=== PATIENT | female | born 1960 | race Caucasian/White ===

== ENCOUNTER 2020-01-22 22:15 | Observation (INO) | payer OTHER, SELFPAY ==
[2020-01-22] VITALS (11 sets, daily range): BP systolic 148–180; BP diastolic 81–98; PULSE 108–142; RESP 13–21; TEMP 36.2; O2SAT 99–100
--- NOTE | ~2020-01-22 | XR_ITS ---
EXAMINATION: XR chest 2V DATE: 01/22/2020 23:07 INDICATION: Arrhythmia. TECHNIQUE: Frontal and lateral views of the chest were obtained. COMPARISON: Chest 2 views 10/07/2011 FINDINGS: The chest demonstrates clear lungs without pneumonia, pleural effusion, or pneumothorax. Th e heart size is normal. There is mild chronic anterior wedging of multiple thoracic vertebral bodies. IMPRESSION: 1. No acute cardiopulmonary disease. Reviewed, dictated and finalized at location A. EMS DEVELOPMENT CONSULTANT
--- NOTE | 2020-01-22 22:22 | ED.GENADULT ---
HPI - General Adult General Chief complaint: Chest Pain Stated complaint: chest heaviness Time Seen by Provider: 01/22/20 22:22 Source: patient Mode of arrival: ambulatory Limitations: no limitations History of Present Illness HPI narrative: Patient is a 59-year-old female with a history of hypothyroidism who presents for evaluation of palpitations, fluttering in her heart. She reports mild chest heaviness. She denies any chest pain. Patient states symptoms started around 9 PM, but she occasionally has had fluttering episodes for many months, patient states her primary care physician stated these were normal and that she should avoid caffeine. Patient denies any recent new medication changes. She is compliant with her Synthroid. She denies any nausea, vomiting or recent illnesses. She denies any numbness or weakness. Pt with history of COVID infection in past, she did not require hospitalization. Pt denies any recent fever, cough, cold symptoms. Related Data Allergies Allergy/AdvReac Type Severity Reaction Status Date / Time No Known Allergies Allergy Verified 01/22/20 22:22 Review of Systems Review of Systems: Narrative: CONSTITUTIONAL: Denies fever, chills, or sweats. EYES: Denies visual changes, redness, or discharge. ENT: Denies rhinorrhea, congestion, sore throat, or otalgia. CARDIOVASCULAR: Denies chest pain currently, reports palpitations RESPIRATORY: Denies cough or dyspnea. GASTROINTESTINAL: Denies abdominal pain, nausea, vomiting, or diarrhea. GENITOURINARY: Denies dysuria or hematuria. SKIN: Denies rash or itching. MUSCULOSKELETAL: Denies back pain, joint pain, or myalgia. NEUROLOGIC: Denies headache, numbness, or weakness. [facility] Past Medical History Medical History Fatigue Generalized osteoarthrosis, unspecified site Hair loss History of mammogram (~07/17/15) Hypothyroidism, unspecified Mixed hyperlipidemia Normal colonoscopy (~05/06/11) Trigger finger (~09/2009) Surgical History Surgical History History of section (~1990) History of section (~1986) Family History Family History Mother Hypertension Family history of elevated blood lipids Family history of coronary artery disease Social History Social History Smoking status: Former smoker Alcohol intake: never Exam Narrative: Exam Narrative: GENERAL: Awake, alert, conversant HEAD: Normocephalic, atraumatic. EYES: PERRLA and EOMI. ENT: Nares clear, no rhinorrhea or epistaxis. Mucous membranes moist. NECK: Supple. CHEST: No respiratory distress, breathing even and non labored HEART: Tachycardic, regular rate, consistent atrial fibrillation with RVR ABDOMEN:Non distended, non tender EXTREMITIES: Normal range of motion. No edema. SKIN: Warm, dry, no rash. NEURO:No focal deficits. Alert and oriented x3 Course Vital Signs Vital signs: Vital Signs Temperature 36.2 C L 01/22/20 22:15 Pulse Rate 136 H 01/22/20 22:15 Respiratory Rate 14 01/22/20 22:15 Blood Pressure 162/98 H 01/22/20 22:15 Pulse Oximetry 100 01/22/20 22:15 Temperature 36.2 C L 01/22/20 22:15 Pulse Rate 118 H 01/23/20 01:34 Respiratory Rate 16 01/23/20 01:34 Blood Pressure 129/89 01/23/20 01:34 Pulse Oximetry 98 01/23/20 01:34 Medical Decision Making MDM Narrative Medical decision making narrative: Patient presented for evaluation of palpitations. At the time of assessment, ABCs are intact. Vital signs notable for irregular tachycardia consistent with atrial fibrillation with RVR. Patient initially endorses that symptoms started at 9 PM this evening, however when I spoke with the patient she states that she often gets intermittent fluttering and was advised to discontinue caffeine use by her primar
--- NOTE | 2020-01-22 22:23 | ECG_ITS ---
Measurements Intervals [place] Rate: 144 P: MA: 0 QRS: 31 QRSD: 90 T: 26 QT: 286 QTc: 443 Interpretive Statements ATRIAL FIBRILLATION WITH RAPID VENTRICULAR RESPONSE DELAYED PRECORDIAL R/S TRANSITION ABNORMAL ECG Electronically Signed On 01-23-2020 7:56:39 MUSIC PRODUCER by Giovani Cortes D.O.
[2020-01-22 22:31] LABS: Basophils Percent Auto 0.5 % (0.2-1.2); Eosinophils Absolute Auto 0.6 K/mm3 (0-0.3); Eosinophils Percent Auto 6.4 % (0-4.4); Hematocrit 40.6 % (37.0-47.0); Hemoglobin 13.4 g/dL (12.0-15.0); Immature Granulocyte Absolute 0.02 K/mm3 (0.00-0.031); Immature Granulocyte Percent A 0.2 % (0-0.5); Lymphocytes Absolute Auto 2.84 K/mm3 (0.9-3.2); Lymphocytes Percent Auto 32.5 % (18.3-44.2); Mean Corpuscular Hemoglobin 32.4 pg (26-34); Mean Corpuscular Volume 98.1 fl (80-100); Mean Platelet Volume 10.1 fl (7.4-10.4); Monocytes Absolute Auto 0.7 K/mm3 (0.1-0.6); Neutrophils Absolute Auto 4.6 K/mm3 (1.3-6.7); Neutrophils Percent Auto 52.4 % (45.5-73.1); Platelet Count Result 174 k/mm3 (150-375); Red Blood Count 4.14 M/mm3 (4.2-5.4); Red Cell Distribution Width 13.3 % (11.5-14.5); White Blood Count 8.7 K/mm3 (4.5-10.0)
[2020-01-22 22:41] LABS: INR 0.9; Prothrombin Time 13.2 Seconds (11.1-14.7)
[2020-01-22 22:42] LABS: Partial Thromboplastin Time 26.3 SECONDS (22.3-36.8)
[2020-01-22 22:44] LABS: Anion Gap 8 mmol/L (8-16); Blood Urea Nitrogen 23 mg/dL (7-17); Calcium 9.4 mg/dL (8.4-10.2); Carbon Dioxide 29 mmol/L (22-30); Chloride 106 mmol/L (98-107); Estimated CRCL calculation 76 ml/min; Estimated Glomerular Filt Rate > 60; Glucose 112 mg/dL (65-105); Potassium 3.9 mmol/L (3.4-5.0); Sodium 143 mmol/L (137-145)
[2020-01-22] MEDS: ASPIRIN 81 MG CHEWABLE TABLET 324 MG PO (22:49)
[2020-01-22] MEDS: dilTIAZem HCl INJ 25 MG/5 ML VIAL 10 MG IV PUSH (22:49)
[2020-01-22] MEDS: SODIUM CHLORIDE 0.9% IV 1,000 ML 999 ML IV CONT (22:49)
[2020-01-22 22:53] LABS: NT Pro B Type Natriuretic Pept 191 PG/ML (5-100)
[2020-01-22 22:56] LABS: Troponin I < 0.012 ng/mL (0.000-0.034)
[2020-01-22 23:41] LABS: Thyroid Stimulating Hormone 0.881 uIU/mL (0.465-4.680)
[2020-01-23] VITALS (21 sets, daily range): BP systolic 113–155; BP diastolic 60–90; PULSE 60–145; RESP 12–20; TEMP 35.8–36.7; O2SAT 97–100; BMI 37.9
[2020-01-23] MEDS: METOPROLOL TARTRATE INJ 5 MG/5 ML VIAL IV PUSH ×2 (00:12→05:59)
--- NOTE | 2020-01-23 00:28 | PC.NURSE ---
Patient ambulated to the bathroom and back to her stretcher with a steady gait.
[2020-01-23] MEDS: ENOXAPARIN 100 MG/ML SYRINGE SUB-Q (01:20)
[2020-01-23 01:50] LABS: Troponin I < 0.012 ng/mL (0.000-0.034)
--- NOTE | 2020-01-23 02:38 | ADMGEN ---
This patient, Rosey Forrest, was admitted to IMU Room 201-01 on 01/23/20 at 0229. Patient/family oriented to hospital policies and general routines including ID bracelet, bed and alarms, visiting hours, pain management, procedures, bathroom and other care routines, personal items, smoking policy, room service/diet, and visiting hours. Information on how to activate the Rapid Response Team has been discussed. Patient/Family are encouraged to report perceived risks to care and to ask questions if they do not understand what they are told or what they should do.
[2020-01-23] MEDS: dilTIAZem HCl INJ 25 MG/5 ML VIAL 10 MG IV PUSH (03:49)
--- NOTE | 2020-01-23 03:52 | PM.IMHP ---
H&P: HPI History of Present Illness Date/Time: 01/23/20 03:52 Chief complaint: A fib with RVR, palpitations Narrative: This is a pleasant 59 year old female with known history of hypothyroidism and recent bout of COVID-19 in October who presented to the hospital with chest palpitations. The patient was sitting and watching Netflix when her chest palpitations started. The patient has noticed that she has had similar palpitations in the past but they have always subsided on their own after a few moments. Tonight her palpitations would not go away so she decided to come to the hospital. The patient was found to be in rapid atrial fibrillation on arrival to the ER. She denies any past history of atrial fibrillation. The patient denies any chest pain, nausea, vomiting, fever, chills, coughing, abdominal pain, dysuria, diarrhea, LE swelling or rectal bleeding. The patient has been treated w/ IV Diltiazem and placed on a Diltiazem IV drip. Cardiology, Dr. Jo has been consulted by ER provider and the patient was also treated with IV Lopressor. No other complaints. Review of Systems Review of Systems: All systems reviewed & are unremarkable except as noted in HPI and below PMFSH Past Medical History Medical History Fatigue Generalized osteoarthrosis, unspecified site Hair loss History of mammogram (~07/17/15) Hypothyroidism, unspecified Mixed hyperlipidemia Normal colonoscopy (~05/06/11) Trigger finger (~09/2009) Surgical History Surgical History History of section (~1990) History of section (~1986) Family History Family History Mother Family history of elevated blood lipids Family history of coronary artery disease Hypertension Acute myocardial infarction Father Diabetes mellitus Social History Social History Smoking packs per day: 1 Smoking cigarettes per day: 20.0 Years smoked: 10 Smoking pack-years: 10.00 Smoking status: Former smoker Alcohol intake: never Substance use: never Substance use type: does not use Gender identity (if verbalized by the patient): Female Sexual Orientation (if Verbalized by the Patient): Straight or Heterosexual Spiritual care concerns: No Meds Home Medications and Allergies Home Medications Medication Instructions Recorded Confirmed Type cholecalciferol (vitamin D3) 1,000 unit PO DAILY 01/23/20 01/23/20 History [Vitamin D3] levothyroxine [Synthroid] 150 mcg PO DAILY 01/23/20 01/23/20 History Allergies Allergy/AdvReac Type Severity Reaction Status Date / Time No Known Allergies Allergy Verified 01/23/20 03:00 Vital Signs Vital Signs - 24 hr 01/22/20 22:15 01/22/20 22:21 01/22/20 22:59 Temperature 36.2 C L Pulse Rate 136 H 142 H 118 H Respiratory Rate 14 17 Blood Pressure 162/98 H 180/81 H Pulse Oximetry 100 99 01/22/20 23:09 01/22/20 23:12 01/22/20 23:13 Temperature Pulse Rate 130 H 108 H 120 H Respiratory Rate 13 21 H Blood Pressure 157/90 H 157/90 H Pulse Oximetry 99 100 01/22/20 23:15 01/22/20 23:30 01/22/20 23:32 Temperature Pulse Rate 116 H 127 H 136 H Respiratory Rate 17 19 13 Blood Pressure 148/82 H Pulse Oximetry 99 99 99 01/22/20 23:45 01/22/20 23:54 01/23/20 00:12 Temperature Pulse Rate 136 H 112 H 124 H Respiratory Rate 16 Blood Pressure 148/82 H Pulse Oximetry 100 01/23/20 00:13 01/23/20 00:32 01/23/20 01:34 Temperature Pulse Rate 129 H 113 H 118 H Respiratory Rate 16 13 16 Blood Pressure 155/75 H 121/90 129/89 Pulse Oximetry 100 99 98 01/23/20 02:22 01/23/20 02:39 01/23/20 03:05 Temperature 36.7 C 36.1 C L Pulse Rate 115 H 128 H 131 H Respiratory Rate 20 18 Blood Pressure 135/83 126/79 Pulse Oximetry 99 100 01/23/20
[2020-01-23 05:15] LABS: Basophils Absolute Auto 0.1 K/mm3 (0.0-0.1); Basophils Percent Auto 0.8 % (0.2-1.2); Eosinophils Absolute Auto 0.6 K/mm3 (0-0.3); Eosinophils Percent Auto 7.6 % (0-4.4); Hematocrit 39.7 % (37.0-47.0); Hemoglobin 13.3 g/dL (12.0-15.0); Immature Granulocyte Absolute 0.03 K/mm3 (0.00-0.031); Immature Granulocyte Percent A 0.4 % (0-0.5); Lymphocytes Absolute Auto 2.78 K/mm3 (0.9-3.2); Lymphocytes Percent Auto 38.6 % (18.3-44.2); Mean Corpuscular HGB Conc 33.5 g/dl (32-36); Mean Corpuscular Hemoglobin 32.3 pg (26-34); Mean Corpuscular Volume 96.4 fl (80-100); Mean Platelet Volume 10.5 fl (7.4-10.4); Monocytes Absolute Auto 0.6 K/mm3 (0.1-0.6); Monocytes Percent Auto 8.3 % (2.6-8.5); Neutrophils Absolute Auto 3.2 K/mm3 (1.3-6.7); Neutrophils Percent Auto 44.3 % (45.5-73.1); Platelet Count Result 187 k/mm3 (150-375); Red Blood Count 4.12 M/mm3 (4.2-5.4); Red Cell Distribution Width 13.5 % (11.5-14.5); White Blood Count 7.2 K/mm3 (4.5-10.0)
[2020-01-23 05:50] LABS: Troponin I < 0.012 ng/mL (0.000-0.034)
[2020-01-23 06:00] LABS: Magnesium 1.9 mg/dL (1.6-2.3)
[2020-01-23 06:25] LABS: Anion Gap 8 mmol/L (8-16); Blood Urea Nitrogen 15 mg/dL (7-17); Calcium 8.9 mg/dL (8.4-10.2); Carbon Dioxide 25 mmol/L (22-30); Chloride 110 mmol/L (98-107); Estimated CRCL calculation 99 ml/min; Estimated Glomerular Filt Rate > 60; Glucose 101 mg/dL (65-105); Potassium 3.6 mmol/L (3.4-5.0); Sodium 143 mmol/L (137-145)
[2020-01-23] MEDS: POTASSIUM CHLORIDE 20 MEQ TABLET 40 MEQ PO (08:30)
--- NOTE | 2020-01-23 10:30 | ECG_ITS ---
Measurements Intervals Given Rate: 76 P: 12 FL: 138 QRS: -10 QRSD: 91 T: 37 QT: 381 QTc: 431 Interpretive Statements SINUS RHYTHM DELAYED PRECORDIAL R/S TRANSITION BORDERLINE ECG Electronically Signed On 01-23-2020 17:57:11 ADVANCED MANUFACTURING ASSOCIATE by Giovani Cortes D.O.
[2020-01-23] MEDS: METOPROLOL TARTRATE 50 MG TAB PO (11:30)
--- NOTE | 2020-01-23 13:07 | PM.CNCAR ---
Assessment and Plan Assessment and plan (1) Atrial fibrillation with rapid ventricular response: Code(s): I48.91 - Unspecified atrial fibrillation Status: Acute Assessment and Plan: New onset atrial fibrillation converted to sinus rhythm spontaneously this morning. No prior documentation although history of palpitations over the years somewhat suspicious. Likely COVID-19 infection contributed, however, this remains unclear. CHADS2 Vasc score 1, possibly 2 given elevation in blood pressures although no prior diagnosis or directed medical therapy. As such, aspirin 325 mg daily reasonable for embolic stroke risk reduction. However, given thromboembolic complications with COVID-19 infection plan for Xarelto 20 mg at bedtime for least the next month with further discussions as an outpatient. We discussed bleeding risk versus embolic stroke risk in detail, factors that contribute to stroke risk with atrial fibrillation, management strategies. All questions answered to her satisfaction and to her sister who was at bedside. Provided patient remains in sinus rhythm, tolerate metoprolol 50 mg b.i.d. plan to discharge home today to follow up with me as an outpatient in the next 2-4 weeks with 2D echocardiogram as an outpatient in our office. TSH stable 0.881. patient verbalized understanding and agreed with plan of care. She will contact our office should she have recurrence for further recommendations. patient will need to contact the office Friday to set up follow-up and 2D echocardiogram. (2) Mixed hyperlipidemia: Code(s): E78.2 - Mixed hyperlipidemia Status: Chronic (3) Hypothyroidism, unspecified: Qualifiers: Hypothyroidism type: unspecified Qualified Code(s): E03.9 - Hypothyroidism, unspecified Code(s): E03.9 - Hypothyroidism, unspecified Status: Chronic Assessment and Plan: Continue levothyroxine. TSH stable. (4) History of 2019 novel coronavirus disease (COVID-19): Code(s): Z86.19 - Personal history of other infectious and parasitic diseases Status: Acute Assessment and Plan: No noted ongoing complications, however, may have contributed developed atrial fibrillation on top of her traditional risk factors. Patient remains somewhat increased risk for thromboembolic complications as a result although to benefit of systemic anticoagulation for this reason remains less clear. (5) Elevated blood pressure reading: Code(s): R03.0 - Elevated blood-pressure reading, without diagnosis of hypertension Status: Acute Assessment and Plan: Suspect patient does have a degree of hypertension. Will need to monitor closely as an outpatient as she does not carry this diagnosis nor has she been treated previously. If this is the case systemic anticoagulation for atrial fibrillation would be advised as her CHADS2 Vasc score would be 2. History of Present Illness History of Present Illness Consult date/time: Date of service:01/23/20 13:07 Cardiology consultation at the request of Dr. Rodriguez for our opinion regarding atrial fibrillation with rapid ventricular response. Requesting physician: Wayne Rodriguez MD Consult reason: atrial fibrillation Reason For Visit: A fib with RVR, palpitations Narrative: Patient is a very pleasant 59-year-old female with a past medical history significant for hypothyroidism, recent COVID-19 in of October a longstanding history of intermittent brief palpitations who presents hospital with sustained rapid palpitations which would not resolve. Patient then presented to the ER for further evaluation where she was found to be in atrial fibrillation with rapid ventricular response. She was started on diltiazem infusion at 15mg/hr with better control heart rate. She then converted to sinus rhythm this morning a little after 10:00 a.m.. She immediately felt improvement sitting she felt back to baseline. She denied
--- NOTE | 2020-01-23 16:49 | PM.DS ---
DS: Admitting Diagnosis Admitting Diagnosis Admitting Diagnosis: A fib with RVR, palpitations DS: Discharge Diagnosis Discharge Diagnosis (1) Atrial fibrillation with rapid ventricular response: Code(s): I48.91 - Unspecified atrial fibrillation Status: Acute Assessment and Plan: patient was admitted to IMU telemetry on a diltiazem drip to control her rate. [place] and converted spontaneously to sinus rhythm and metoprolol 50 b.i.d. was added. Chadvas score of 1 but patient was discharge on Xarelto 20 daily for the next month in light of the fact that she had had a recent COVID infection within the last month or 2. TSH was normal. She will follow-up with Dr. escudero as an outpatient for echocardiogram. she is instructed not to use any aspirin or nonsteroidals with her anticoagulant. (2) Hypothyroidism, unspecified: Qualifiers: Hypothyroidism type: unspecified Qualified Code(s): E03.9 - Hypothyroidism, unspecified Code(s): E03.9 - Hypothyroidism, unspecified Status: Chronic Assessment and Plan: Continue levothyroxine PO. And TSH normal as above DS: Summary Hospital Course Hospital Course: 59-year-old healthy white female with hypothyroidism developed palpitations while watching television. When it persisted she came to the emergency room where she was found to be in atrial fib rapid ventricular response. Placed on diltiazem drip and admitted. She spontaneously converted to sinus rhythm the next morning and after seen by Cardiology was placed on metoprolol 50 b.i.d. and Xarelto 20 daily. She will return to see cardiology this next week for outpatient echocardiogram and follow-up with next 2-3 weeks. Time Spent with Patient Time attestation: Total time spent providing and/or coordinating discharge services: 35 minutes Exam Narrative: Exam Narrative: condition on discharge blood pressure 122/66 pulse is 60 sat 98% on room air afebrile lungs clear CV regular rate rhythm no murmurs abdomen soft nontender no masses extremities without edema good distal pulses neuro alert cooperative no focal deficits She was up and about with no further palpitations feeling much better and able to be discharged home in stable condition DS: Data Data Completed and Pending Labs on day of discharge: Labs from last 24 hours 01/23/20 01/23/20 01/23/20 04:29 04:29 04:29 WBC 7.2 RBC 4.12 L Hgb 13.3 Hct 39.7 MCV 96.4 MCH 32.3 MCHC 33.5 RDW 13.5 Plt Count 187 MPV 10.5 H Immature Gran % (Auto) 0.4 Neut % (Auto) 44.3 L Lymph % (Auto) 38.6 [place] % (Auto) 8.3 Eos % (Auto) 7.6 H Baso % (Auto) 0.8 Lymph # (Auto) 2.78 [place] # (Auto) 0.6 Eos # (Auto) 0.6 H Baso # (Auto) 0.1 Abs Immat Gran (auto) 0.03 Absolute Neuts (auto) 3.2 Absolute Nucleated RBC 0.0 Nucleated RBC % 0.0 PT INR APTT Sodium 143 Potassium 3.6 Chloride 110 H Carbon Dioxide 25 Anion Gap 8 BUN 15 D Creatinine 0.60 L Estim Creat Clear Calc 99 Estimated GFR > 60 Glucose 101 Calcium 8.9 Magnesium 1.9 Troponin I NT-Pro-B Natriuret Pep TSH 01/23/20 01/23/20 01/22/20 04:29 01:20 22:26 WBC RBC Hgb Hct MCV MCH MCHC RDW Plt Count MPV Immature Gran % (Auto) Neut % (Auto) Lymph % (Auto) Nicol[place] % (Auto) Eos % (Auto) Baso % (Auto) Lymph # (Auto) Nicol[place] # (Auto) Eos # (Auto) Baso # (Auto) Abs Immat Gran (auto) Absolute Neuts (auto) Absolute Nucleated RBC Nucleated RBC % PT INR APTT Sodium Potassium Chloride Carbon Dioxide Anion Gap BUN Creatinine Estim Creat Clear Calc Estimated GFR Glucose Calcium Magnesium Troponin I < 0.012 < 0.012 NT-Pro-B Natriuret Pep TSH 0.881 01/22/20 01/22/20 01/22/20 22:26 22:26 22:26 WBC
== END 2020-01-23 14:24 | disposition home or self-care (01) ==
LOC: ANHED 01-23 01:39 → ANHIMU 01-23 14:00
PROVIDERS: Admitting Provider Family Medicine; Emergency Provider Emergency Medicine; PCP Family Medicine; Visit Provider Internal Medicine
DX: I48.91 Unspecified atrial fibrillation (principal); R03.0 Elevated blood-pressure reading, without diagnosis of hypertension; E03.9 Hypothyroidism, unspecified; E78.2 Mixed hyperlipidemia; Z79.899 Other long term (current) drug therapy; Z86.19 Personal history of other infectious and parasitic diseases; Z87.891 Personal history of nicotine dependence
CPT/HCPCS: 36415; 71046; 80048; 83735; 83880; 84443; 84484; 85025; 85610; 85730; 93005; 96361; 96365; 96366; 96372; 96375; 96376; 99285; A9270; G0378; J1650; J7030

== ENCOUNTER 2020-11-09 07:43 | Outpatient (CLI) | payer OTHER, SELFPAY ==
--- NOTE | ~2020-11-09 | MM_ITS ---
EXAMINATION: MM screening [facility] BI w vy HISTORY: Screening mammogram TECHNIQUE: Craniocaudal and mediolateral oblique 3-D tomosynthesis images were obtained and synthetic 2-D images were generated. CAD analysis was submitted and interpreted. COMPARISON: 10/06/2018, 07/29/2017, 07/26/2016 BREAST PARENCHYMAL COMPOSITION: There are scattered areas of fibroglandular density. FINDINGS: There is no evidence of suspicious mass, calcification, or architectural distortion to sugg est malignancy in either breast. There has been no suspicious interval change. IMPRESSION: 1. No mammographic evidence of malignancy. 2. Recommend routine screening mammography in one year. BI-RADS Category 1: Negative Reviewed, dictated and finalized at location A.
== END 2020-11-09 07:44 | disposition home or self-care (01) ==
LOC: ANHIMG 07:45
PROVIDERS: PCP Family Medicine; Visit Provider Family Medicine
DX: Z12.31 Encounter for screening mammogram for malignant neoplasm of breast (principal)
CPT/HCPCS: 77063; 77067

== ENCOUNTER 2022-08-27 07:16 | Outpatient (CLI) | payer OTHER, SELFPAY ==
--- NOTE | ~2022-08-27 | MM_ITS ---
EXAMINATION: MM screening [facility] BI w vy HISTORY: Screening mammogram TECHNIQUE: Craniocaudal and mediolateral oblique 3-D tomosynthesis images were obtained and synthetic 2-D images were generated. CAD analysis was submitted and interpreted. COMPARISON: Serial mammograms dating back to 07/17/2015 BREAST PARENCHYMAL COMPOSITION: There are scattered areas of fibroglandular density. FINDINGS: There is chronic stable fibroglandular asymmetry, more prominent on the right. There is no evidence of suspicious mass, calcification, or architectural distortion to suggest malignancy in eith er breast. There has been no suspicious interval change. IMPRESSION: 1. No mammographic evidence of malignancy. 2. Recommend routine screening mammography in one year. BI-RADS Category 1: Negative Reviewed, dictated and finalized at location A.
== END 2022-08-27 07:17 | disposition home or self-care (01) ==
LOC: ANHIMG 07:18
PROVIDERS: PCP Family Medicine; Visit Provider Family Medicine
DX: Z12.31 Encounter for screening mammogram for malignant neoplasm of breast (principal)
CPT/HCPCS: 77063; 77067

== ENCOUNTER 2022-10-22 08:25 | Outpatient (CLI) | payer OTHER, SELFPAY ==
--- NOTE | 2022-10-30 17:04 | WPDSLEEPSTUD ---
Sleep Study Date of Study: 10/22/22 Ordering Provider: Kiran Webb MD Interpreting Physician: Chetna Chisholm MD Sleep Study Type: Polysomnogram Height: 1.65 m Weight: 102.512 kg Body Mass Index: 37.5 Neck Circumference (inches): 13 [place]: 3 Reason for Sleep Study Paroxysmal atrial fibrillation 2019; daytime sleepiness, poor sleep, difficulty getting to sleep and staying asleep, palpitations and snoring Sleep History Rosey Forrest is a 62-year-old woman who developed paroxysmal atrial fibrillation in 2019. Her fnp documented symptoms highly suggestive of clinically significant sleep apnea with chronic daytime sleepiness, poor quality sleep, exhaustion after average night of sleep, difficulty getting to sleep and staying asleep, palpitations and snoring. She does not awaken from sleep feeling short of breath. She occasionally awakens at night with heartburn. She occasionally snores and occasionally this is loud enough that others complain about it. She occasionally has difficulty sleeping when she has a cold. She does not gasp for breath on most nights. She occasionally sweats excessively at night and notices her heart pounding or beating irregularly night. She generally does not fall asleep during the day, does not fall asleep involuntarily or while driving. She does not have loss of muscle tone with strong emotion. She does not have daytime difficulties due to excessive sleepiness, she is a loan manager. She does not feel paralyzed on waking or falling asleep. She occasionally has vivid dreamlike scenes on waking or falling asleep. She does not feel afraid to go to sleep. She denies having nightmares. She occasionally remembers her dreams. She does not have racing thoughts. She occasionally has feelings of sadness and depression. She frequently has anxiety. She does not have muscular tension or notice parts of her body jerking. She does not kick at night. She does not have crawling or aching feelings in her legs. She does not have leg pain at night. She denies morning jaw pain. She does not experience pain during the day or awaken due to pain at night. She frequently wakes up feeling stiff in the morning with sore achy muscles or pain in the neck and spine. She frequently has palpitations daytime and nighttime. Normal bedtime is 12 midnight falling asleep within 15 minutes. She wakes up 2-3 times during the night long enough to reposition and return to sleep. Her wake time is between 4:30 a.m. and 5:00 a.m.. She keeps the same schedule on weekends. She estimates getting between 4-1/2 and 5 hours of sleep most nights. She does not generally take naps. Habits: Quit tobacco 15 years ago. Caffeine 1 serving per day. No alcohol. No recreational substances. [facility] Past Medical History Medical History (Updated 10/31/22 @ 13:08 by Chetna Chisholm MD) COVID-19 Elevated blood pressure reading Fatigue Generalized osteoarthrosis, unspecified site Hair loss History of mammogram (~07/17/15) Hypothyroidism, unspecified Mixed hyperlipidemia Normal colonoscopy (~05/06/11) Paroxysmal atrial fibrillation Trigger finger (~09/2009) Surgical History Surgical History History of section (~1990) History of section (~1986) Total knee replacement status (~02/2022) Family History Family History Mother Family history of elevated blood lipids Family history of coronary artery disease Hypertension Acute myocardial infarction Father Diabetes mellitus Social History Social History Social History: Caffeine-diet soda Smoking packs per day: 1 Smoking cigarettes per day: 20.0 Years smoked: 10 Smoking pack-years: 10.00 Smoking status: Former smoker Alcohol intake: never Substance use: never Substance use
[2022-10-31 13:15] VITALS: BMI 37.5
== END 2022-10-23 06:35 | disposition home or self-care (01) ==
LOC: ANHCSM 08:31
PROVIDERS: PCP Family Medicine; Visit Provider Internal Medicine Cardiovascular Disease
DX: G47.33 Obstructive sleep apnea (adult) (pediatric) (principal); R53.82 Chronic fatigue, unspecified; R00.2 Palpitations; I48.0 Paroxysmal atrial fibrillation; Z87.891 Personal history of nicotine dependence
CPT/HCPCS: 95810

== ENCOUNTER 2023-04-25 09:19 | Outpatient (CLI) | payer OTHER, SELFPAY ==
[2023-04-25 12:27] LABS: Alanine Aminotransferase 53 U/L (6-35); Albumin Level 4.1 g/dL (3.5-5.1); Alkaline Phosphatase 62 U/L (38-126); Anion Gap 4 mmol/L (8-16); Aspartate Amino Transferase 59 U/L (14-36); Bilirubin,Total 0.7 mg/dL (0.2-1.3); Blood Urea Nitrogen 18 mg/dL (7-17); Calcium 9.5 mg/dL (8.4-10.2); Carbon Dioxide 30 mmol/L (22-30); Chloride 107 mmol/L (98-107); Estimated Glomerular Filt Rate > 60; Glucose 97 mg/dL (65-110); Potassium 4.5 mmol/L (3.4-5.0); Sodium 141 mmol/L (137-145)
[2023-04-25 12:47] LABS: Thyroid Stimulating Hormone 0.997 uIU/mL (0.465-4.680)
[2023-04-25 13:38] LABS: Free T4 Free Thyroxine 1.39 ng/mL (0.78-2.19)
== END 2023-04-25 09:20 | disposition home or self-care (01) ==
LOC: ANHGOSHLAB 09:21
PROVIDERS: PCP Family Medicine; Visit Provider Family Medicine
DX: R79.89 Other specified abnormal findings of blood chemistry (principal); Z79.899 Other long term (current) drug therapy; E66.9 Obesity, unspecified
CPT/HCPCS: 36415; 80053; 84439; 84443

== ENCOUNTER 2023-10-21 07:17 | Outpatient (CLI) | payer OTHER, SELFPAY ==
--- NOTE | ~2023-10-21 | MM_ITS ---
EXAMINATION: MM screening [facility] BI w vy HISTORY: Screening TECHNIQUE: Craniocaudal and mediolateral oblique 3-D tomosynthesis images were obtained and synthetic 2-D images were generated. CAD analysis was submitted and interpreted. COMPARISON: Comparison to multiple prior studies sequentially, with oldest reviewed study dated 04/2015. BREAST PARENCHYMAL COMPOSITION: . Not dense: There are scattered areas of fibroglandular density. FINDINGS: There is no evidence of suspicious mass, calcification, or architectural distortion to sugg est malignancy in either breast. There has been no suspicious interval change. IMPRESSION: 1. No mammographic evidence of malignancy. 2. Recommend routine screening mammography in one year. BI-RADS Category 1: Negative Reviewed, dictated and finalized at location B.
== END 2023-10-21 07:18 | disposition home or self-care (01) ==
PROVIDERS: PCP Family Medicine; Visit Provider Family Medicine
DX: Z12.31 Encounter for screening mammogram for malignant neoplasm of breast (principal)
CPT/HCPCS: 77063; 77067

== ENCOUNTER 2024-02-17 01:01 | Day surgery (SDC) | payer OTHER, SELFPAY ==
[2024-02-16 10:56] VITALS: BMI 34.4
[2024-02-17] VITALS (16 sets, daily range): BP systolic 116–135; BP diastolic 53–69; PULSE 46–54; RESP 12–20; TEMP 36.8; O2SAT 95–99; BMI 35.6
[2024-02-17 08:48] LABS: Basophils Percent Auto 0.7 % (0.2-1.2); Eosinophils Absolute Auto 0.3 K/mm3 (0-0.3); Eosinophils Percent Auto 4.9 % (0-4.4); Hematocrit 41.5 % (37.0-47.0); Hemoglobin 13.7 g/dL (12.0-15.0); Immature Granulocyte Absolute 0.02 K/mm3 (0.00-0.031); Immature Granulocyte Percent A 0.3 % (0-0.5); Lymphocytes Absolute Auto 1.73 K/mm3 (0.9-3.2); Lymphocytes Percent Auto 29.3 % (18.3-44.2); Mean Corpuscular Hemoglobin 32.5 pg (26-34); Mean Corpuscular Volume 98.3 fl (80-100); Mean Platelet Volume 10.3 fl (7.4-10.4); Monocytes Absolute Auto 0.4 K/mm3 (0.1-0.6); Monocytes Percent Auto 7.3 % (2.6-8.5); Neutrophils Absolute Auto 3.4 K/mm3 (1.3-6.7); Neutrophils Percent Auto 57.5 % (45.5-73.1); Platelet Count Result 178 k/mm3 (150-375); Red Blood Count 4.22 M/mm3 (4.2-5.4); White Blood Count 5.9 K/mm3 (4.5-10.0)
[2024-02-17 09:00] LABS: Anion Gap 8 mmol/L (4-12); Blood Urea Nitrogen 20 mg/dL (7-17); Calcium 9.5 mg/dL (8.4-10.2); Carbon Dioxide 24 mmol/L (22-30); Chloride 107 mmol/L (98-107); Estimated CRCL calculation 75 ml/min; Estimated Glomerular Filt Rate > 60; Glucose 98 mg/dL (65-110); Potassium 4.3 mmol/L (3.4-5.0); Sodium 139 mmol/L (137-145)
--- NOTE | 2024-02-17 09:40 | P.SEDATION_ITS ---
Moderate Sedation Note-Pt Data Patient Data Diagnosis: Coronary artery disease Present Complaint: Coronary artery disease Procedure to be performed/Plan: Coronary angiography, left heart cath, +/- PCI Allergies Allergy/AdvReac Type Severity Reaction Status Date / Time No Known Allergies Allergy Verified 02/17/24 08:32 Home Medications Medication Instructions Recorded Confirmed Type metoprolol tartrate 50 mg tablet 50 mg PO Q12HR #60 tabs 01/23/20 02/16/24 Rx aspirin 325 mg tablet 325 mg PO DAILY 03/23/20 02/16/24 History furosemide 20 mg tablet 20 mg PO DAILY 08/18/23 02/16/24 History multivitamin-ferrous 1 tablet PO DAILY 08/18/23 02/16/24 History fumarate-folic acid 18 mg-400 mcg tablet (Centrum Women) levothyroxine 112 mcg tablet 112 mcg PO DAILY #90 tabs 11/03/23 02/16/24 Rx (Synthroid) cholecalciferol (vitamin D3) 1,250 50,000 unit PO WEEKLY #12 caps 01/06/24 02/16/24 Rx mcg (50,000 unit) capsule Sedation/Anesthesia: No previous sedation/anesthesia problems (including family history). [facility] Past Medical History Medical History COVID-19 Elevated blood pressure reading Fatigue Generalized osteoarthrosis, unspecified site Hair loss History of mammogram (~07/17/15) Hypothyroidism, unspecified Mixed hyperlipidemia Normal colonoscopy (~05/06/11) Paroxysmal atrial fibrillation Trigger finger (~09/2009) Surgical History Surgical History History of section (~1990) History of section (~1986) Total knee replacement status (~02/2022) Family History Family History Mother Family history of elevated blood lipids Family history of coronary artery disease Hypertension Acute myocardial infarction Father Diabetes mellitus Social History Social History Social History: Caffeine-diet soda Smoking packs per day: 1 Smoking cigarettes per day: 20.0 Years smoked: 10 Smoking pack-years: 10.00 Smoking status: Former smoker Alcohol intake: never Substance use: never Substance use type: does not use Lack of Transportation: No Lack of Food: Never True Current Housing: I Have Housing Concerned About Future Housing: No Difficulty Paying Gas/Electric Bills: No Difficulty Paying for Meds: No Currently Unemployed: No Education: High School Diploma/GED Difficulty w/ Childcare or Family Care: No Living arrangements: with family Gender identity (if verbalized by the patient): Female Sexual Orientation (if Verbalized by the Patient): Straight or Heterosexual Spiritual care concerns: No Mod Sed Physical Exam Physical Exam Pre Procedural Exam: Normal: Appearance, Lungs, Heart Rate, Heart Rhythm, Neuro Exam, Abdomen, Extremities and Skin Hours since solid foods: 12 Hours since liquid intake: 8 Mallampati Classification: class III Internal Medicine - PN: Obj Da Vital Signs Vital Signs: Vital Signs - 24 hr 02/17/24 08:38 Temperature 36.8 C Pulse Rate 48 L Respiratory Rate 16 Blood Pressure 132/64 Pulse Oximetry 96 Oxygen Delivery Room Air Labs 02/17/24 08:39 02/17/24 08:39 Labs: Laboratory Results - last 24 hr 02/17/24 08:39 WBC 5.9 RBC 4.22 Hgb 13.7 Hct 41.5 MCV 98.3 MCH 32.5 MCHC 33.0 RDW 13.0 Plt Count 178 MPV 10.3 Immature Gran % (Auto) 0.3 Neut % (Auto) 57.5 Lymph % (Auto) 29.3 [place] % (Auto) 7.3 Eos % (Auto) 4.9 H Baso % (Auto) 0.7 Lymph # (Auto) 1.73 [place] # (Auto) 0.4 Eos # (Auto) 0.3 Baso # (Auto) 0.0 Abs Immat Gran (auto) 0.02 Absolute Neuts (auto) 3.4 Absolute Nucleated RBC 0.000 Nucleated RBC % 0.0 Sodium 139 Potassium 4.3 Chloride 107 Carbon Dioxide 24 Anion Gap 8 BUN 20 H Creatinine 0.80 Estim Creat Clear Calc 75 Estimated GFR > 60 Glucose 98 Calcium 9.5 ASA Classification/Sedation ASA Classification/Sedation ASA Class: III Emergent: No Risks: Risks, benefits and alternatives explained and patient/family accepted plan for sedation. Patient re-evaluated immediately prior to sedation.
--- NOTE | 2024-02-17 09:40 | WPDHPUPDATE1 ---
History and Physical Update Update Date/Time: 02/17/24 09:40 History and Physical has been reviewed, including an updated exam of the patient. There are NO changes in the patient's condition. Risks, benefits, and alternatives have been discussed and questions answered. Patient agrees to proceed with procedure.
--- NOTE | 2024-02-17 10:43 | WPDCARDPROC ---
Cardiac Cath Procedure Note Date of procedure:: 02/17/24 Performing physician:: CATHETERIZATION LABORATORY REPORT Procedure Date: 02/17/2024 K 9 Handler/ Deputy: Domonique Read M.D., [facility]? Referring Physician: Olvin oRbles M.D. ? Anesthesia: Versed and Fentanyl were ordered and given in my presence at 10:18, procedure ended at 10:34. Supervision of nurse monitored moderate sedation with Versed and Fentanyl was provided for 16 minutes. Total of Versed 1mg and Fentanyl 50mcg were administered by the Porcelain Technician RN Mer Wagner. Pre-op Diagnosis: Coronary artery disease Post-op Diagnosis: Non-obstructive coronary artery disease Procedure(s): 1. Moderate sedation 2. Ultrasound-guided access of the right radial artery 3. Coronary angiography Access Site: Right radial artery Brief History and Clinical Indications: Patient is a 63 year old female who is referred for [facility] for abnormal CCTA. All risks, benefits and alternatives to left heart catheterization with or without percutaneous coronary intervention was discussed at length with the patient. Risk of complications including but not limited to bleeding, infection, arrhythmia, stroke, worsening kidney function, blood loss, groin hematoma, limb loss, emergency coronary artery bypass grafting, and even were discussed with the patient and all questions were answered. The patient understood and wished to proceed. Time out called, patient name, date of , medical record number, allergies, procedure performed, identify K 9 Handler/ Deputy, patient and staff member concurred with accurate data, procedure carried on. Findings: LEFT HEART CATHETERIZATION FINDINGS: 1. Left main: The left main coronary artery is widely patent without any significant obstructive disease. 2. Left anterior descending: The mid LAD has a moderate 50% stenosis. 3. Left circumflex: The left circumflex artery has luminal irregularities. The mid portion of OM has mild disease. No significant obstructive angiographic disease. 4. Right coronary artery: The RCA is the dominant artery. 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 There is mild-moderate stenosis. Remainder of the mid RCA has diffuse mild disease. Distal RCA with luminal irregularities. Description of Procedure: Informed consent signed and placed in the chart. Patient transferred to microbiological lab technician room. Prepped and draped in usual sterile fashion. 2% lidocaine injected subcutaneously in right wrist area. 22-gauge venipuncture catheter used to access the right radial artery under ultrasound guidance. 6-FR slender sheath placed in right radial artery. Nitroglycerine and Verapamil were given intraarterial through the sheath. Versacore wire advanced under fluoroscopy 5F Tig 4 diagnostic catheter engaged Left Main Coronary Artery. 5F Tig 4 diagnostic catheter engaged Right Coronary Artery Multiple orthogonal angiogram obtained and reviewed Hemostasis was achieved by application of TR band. Disposition: Home Plan: The patient will be monitored in the recovery area. The above findings were discussed with the referring physician. Continue aggressive medical therapy and risk factor modification. ? Domonique Read M.D. Interventional Cardiology
== END 2024-02-17 14:43 | disposition home or self-care (01) ==
PROVIDERS: PCP Family Medicine; Visit Provider Internal Medicine
PROC: 4A023N7 Measurement of Cardiac Sampling and Pressure, Left Heart, Percutaneous Approach (ICD-10-PCS; CPT 93452; principal; 2024-02-17 10:30)
DX: I25.10 Atherosclerotic heart disease of native coronary artery without angina pectoris (principal); E03.9 Hypothyroidism, unspecified; E78.2 Mixed hyperlipidemia; I48.0 Paroxysmal atrial fibrillation; M15.9 Polyosteoarthritis, unspecified; Z79.82 Long term (current) use of aspirin; Z98.890 Other specified postprocedural states; Z87.891 Personal history of nicotine dependence; Z82.49 Family history of ischemic heart disease and other diseases of the circulatory system
CPT/HCPCS: 36415; 80048; 85025; 93458; C1769; C1887; C1894; J1644; J2003; J2250; J2305; J3010; J7040

== ENCOUNTER 2024-08-02 14:23 | Outpatient (CLI) | payer OTHER, SELFPAY ==
--- NOTE | ~2024-08-02 | CT_ITS ---
CT Scan of the Chest without Contrast: Clinical Indication: Pulmonary nodule Technique: Contiguous sections were acquired throughout the chest without intravenous contrast. Dose reduction technique was used on this scan by utilizing automated exposure control and iterative recon struction technique. The dose-length product (DLP) was 206.53 mGy-cm. Findings: There is no evidence of any significant mediastinal, hilar or axillary lymphadenopathy. Extensive cor onary artery calcifications are present. There is no evidence of pleural or pericardial effusion. 5 mm left lower lobe pulmonary nodule present (axial image 77). No other pulmonary abnormality seen. Images through the upper abdomen reveal no abnormalities. Impression: 5 mm left lower lobe pulmonary nodule, as detailed above. According to Fleischner Society criteria, f or a low-risk patient, no further follow-up required. For a high-risk patient, consider 12 month foll ow-up CT. Reviewed, dictated and finalized at [facility]. Impression: 5 mm left lower lobe pulmonary nodule, as detailed above. According to Fleischn er Society criteria, for a low-risk patient, no further follow-up required. For a high-risk patient, consider 12 month follow-up CT.
--- OUTSIDE RECORDS SUMMARY | 2024-08-02 14:28 | XMS_ITS | Referral Summary ---
Author Organization [facility] [address] [address] [address] [place] [address] Care Team Providers Care Principal Biostatistician Name Role Phone Keturah Culver Primary Care Provider [phone] Bradford Jenkins MD Unavailable [phone] Encounters Date Type Department Care Team Description 06/14/2024 11:45 AM CDT Office Visit [facility] Cardiology [address] [place] [address] Prashant Robles MD Coronary artery disease of [place] artery of [place] heart with stable angina pectoris (Primary Dx); Paroxysmal atrial fibrillation (HCC); Pulmonary HTN (HCC); Palpitations; DAVID (obstructive sleep apnea) from Last 3 Months Allergies No known active allergies Medications cholecalciferol (VITAMIN D-3) 50,000 unit capsule cholecalciferol (vitamin D3) 1,250 mcg (50,000 unit) capsule TAKE 1 CAPSULE BY MOUTH ONCE A WEEK Active levothyroxine (SYNTHROID) 112 mcg tablet Take 1 tablet (112 mcg total) by mouth daily 022 Active apixaban (ELIQUIS) 5 mg tabletIndicatio ns:atrial fibrillation Take 1 tablet (5 mg total) by mouth 2 (two) times a day 60 tablet 025 2025 Active atorvastatin (LIPITOR) 20 mg tabletIndicatio ns:Coronary artery disease of [place] artery of [place] heart with stable angina pectoris Take 1 tablet (20 mg total) by mouth daily 30 tablet 025 01/27/ 2026 Active metoprolol tartrate (LOPRESSOR) 50 mg immediate release tabletIndicatio ns:Paroxysmal atrial fibrillation (HCC) TAKE 1 TABLET BY MOUTH TWICE A DAY 180 tablet 2 025 Active furosemide (LASIX) 20 mg tablet Take 1 tablet by mouth once daily 90 tablet 2 025 Active furosemide (LASIX) 20 mg tablet Take 1 tablet by mouth once daily 30 tablet 2 025 2024 Discontinued Active Problems Problem Noted Date Diagnosed Date Nodule of lower lobe of left lung 04/12/2024 Coronary artery disease of n ative artery of [place] heart with stable angina pectoris 04/12/2024 Localized edema 04/30/2023 Morbid (severe) obesity due to excess calories 0 04/30/2023 Medication side effects 12/26/2022 Pulmonary HTN 12/26/2022 Lipid screening 12/26/2022 Primary osteoarthritis of right knee 02/13/2022 Overview (02/13/2022): Added automatically from request for surgery [id number] Chronic fatigue 07/27/2020 Paroxysmal atrial fibrillation 07/27/2020 Palpitations 07/27/2020 History of 2019 novel coronavirus disease (COVID -19) 07/27/2020 Insomnia 07/27/2020 DAVID (obstructive sleep apnea) 07/27/2020 Obesity (BMI 35.0-39.9 without comorbidity) 07/15 Hypothyroidism (acquired) 07/27/2020 Social History Tobacco Use Types Packs/Day Years Used Date Smoking Tobacco: Former Cigarettes Q uit: 2000 Smokeless Tobacco: Never Tobacco Cessation:Counseling Given: Not Answered Alcohol Use Standard Drinks/Week Comments Not Currently 0 (1 standard drink = 0.6 oz pur e alcohol) AUDIT-C Answer Date Recorded Q1: How often do you have a drink containing alc ohol? Never 02/25/2022 Average Number of Drinks Not on file 022 Frequency of Binge Drinking Not on file 02/14 Comments Unknown Sex and Gender Information Value Date Recorded Sex Assigned at Not on file Legal Sex Female 5:06 AM DOCUMENTATION CLERK Gender Identity Not on file Sexual Orientation Not on file Last Filed Vital Signs Vital Sign Reading Time Taken Comments Blood Pressure 124/72 06/14/2024 11:56 AM CDT Pulse 51 06/14/2024 11:56 AM CDT Temperature 36.7 C (98 F) 02/25/2022 12:39 PM DOCUMENTATION CLERK Respiratory Rate 18 02/25/2022 2:45 PM DOCUMENTATION CLERK Oxygen Saturation 96% 06/14/2024 11:56 AM CDT Inhaled Oxygen Concentration - - Weight 104.3 kg (230 lb) 06/14/2024 11:56 AM CDT Height 165.1 cm (5' 5 ) 06/14/2024 11:56 AM CDT Body Mass Index 38.27 06/14/2024 11:56 AM CDT Plan of Treatment Not on file Medical Devices Implanted Type Area Healthcare Analyst Device Identifier Shelf Expiration Date Model / Serial / Lot [employer] Cement Bone Simplex Gentamicin High Viscosity [facility] 6195-1-001 - [id number] Implanted:Qty: 1 on 02/25/2022 by Bradford Jenkins MD at [facility] [employer] [id number] 06/15/2023 6195-1-001 / / [id number] [employer] Cement Bone Simplex Gentamicin High Viscosity [facility] 6195-1-001 - [id number] Implanted:Qty: 1 [facility] 02/25/[facility] [id number] 06/15/2023 6195-1-001 / / [id number] [employer] Attune Cemented Posterior Stabilize Knee Right 6 Component [id number] - [id number] Implanted:Qty: 1 on 02/25/2022 by Bradford Jenkins MD at [facility] [employer] [id number] 07/15/2031 [id number] / / [id number] [employer] Attune S+ Cement Fix Bearing Knee 5 Baseplate Tibial [id number] - [id number] Implanted:Qty: 1 on 02/25/2022 by Bradford Jenkins MD at [facility] [employer] [id number] 01/15/2032 [id number] / / [id number] [employer] Attune 8mm Posterior Stabilize Fix Bearing Knee 6 Insert Tibial [id number] - [id number] Implanted:Qty: 1 on 02/25/2022 by Bradford Jenkins MD at [facility] [employer] [id number] 12/14/2026 [id number] / / [id number] Procedures Procedure Name Priority Date/Time Associated Diagnosis Comments POCT LIPID PANEL Routine 06/14/2024 11:5 9 AM CDT Coronary artery disease of [place] artery of [place] heart with stable angina pectoris from Last 3 Months Results * POCT lipid panel (06/14/2024 11:59 AM CDT) Cholesterol, POC 102 mg/dL HDL, POC 53 mg/dL Triglycerides, POC 97 mg/dL LDL Cholesterol POC 30 mg/dL Chol/HDL Ratio, POC 0.6 Non-HDL Cholesterol, POC 49 mg/dL Cholesterol Total, POC 102 mg/dL Capillary blood 06/14/2024 1 1:59 AM CDT us Prashant Robles MD POINT OF CARE TEST ORDERA BLES Final Result from Last 3 Months Insurance [facility] CHOICE PLUS [facility] H[facility]/PPO Address: [facility] [address] [place] [address] [facility] CHOICE PLUS [facility] H[facility]/PPO Address: [place] [address] Care Teams Principal Biostatistician Relationship Specialty Start Date End Date Keturah Culver DO PCP - General Family Medicine 01/23/20 Bradford Jenkins MD [address] [place] [address] Surgeon Orthopedic Surgery 02/25/22
--- OUTSIDE RECORDS SUMMARY | 2024-08-02 14:28 | XMS_ITS | Clinical Summary ---
Author Organization [facility] [address] Address [address] [place] [address] Care Team Providers Care Android Architect Name Role Phone DavidmarcKeturah hutchinson Primary Care Provider [phone] Bradford Jenkins MD Unavailable [phone] Allergies No known active allergies Medications cholecalciferol [...] 2 (two) times a day 60 tablet 11 025 2025 Active atorvastatin (LIPITOR) 20 mg tabletIndicatio ns:Coronary artery disease of [place] artery of [place] heart with stable angina pectoris Take 1 tablet (20 mg total) by mouth daily 30 tablet 11 025 2025 Active metoprolol tartrate (LOPRESSOR) 50 mg immediate [...] artery disease of n ative artery of [place] heart with stable angina pectoris 04/12/2024 Localized edema 04/30/2023 Morbid (severe) obesity due to excess calories 0 04/30/2023 Medication side effects 12/26/2022 Pulmonary HTN 12/26/2022 Lipid screening 12/26/2022 Primary osteoarthritis of right knee 02/13/2022 Overview (02/13/2022): Added automatically from request for surgery [id number] Chronic fatigue 07/27/2020 Paroxysmal atrial fibrillation 07/27/2020 Palpitations 07/27/2020 History of 2019 novel coronavirus disease (COVID -19) 07/27/2020 Insomnia 07/27/2020 DAVID (obstructive sleep apnea) 07/27/2020 Obesity (BMI 35.0-39.9 without comorbidity) 07/15 Hypothyroidism (acquired) 07/27/2020 Encounters Date Type Department Care Team Description 06/14/2024 11:45 AM CDT Office Visit [facility] Cardiology [address] [place] [id number] Prashant Robles MD Coronary artery disease of [place] artery of [place] heart with stable angina pectoris (Primary Dx); Paroxysmal atrial fibrillation (HCC); Pulmonary HTN (HCC); Palpitations; DAVID (obstructive sleep apnea) from Last 3 Months Surgical History Surgery Date Site/Laterality Comments SECTION x2 TRIGGER FINGER RELEASE Right Medical History Medical History Date Comments Cardiac rhythm disturbance Thyroid disease Atrial fibrillation (HCC) 01/22/2020 Family History Medical History Relation Name Comments Heart attack Father Heart attack Mother Relation Name Status Comments Father (Age 88) Mother Alive Sister 1 Alive Sister 2 Alive Social History Tobacco Use Types Packs/Day Years Used Date Smoking Tobacco: Former Cigarettes Q uit: 1999 Smokeless Tobacco: Never Tobacco Cessation:Counseling Given: Not [...] on file Legal Sex Female 5:06 AM CHASER APPRENTICE Gender Identity Not on file Sexual Orientation Not on file Obstetrics History Last Filed Vital Signs Vital Sign Reading Time Taken Comments Blood Pressure 124/72 06/14/2024 11:56 AM CDT Pulse 51 06/14/2024 11:56 AM CDT Temperature 36.7 C (98 F) 02/25/2022 12:39 PM CHASER APPRENTICE Respiratory Rate 18 02/25/2022 2:45 PM CHASER APPRENTICE Oxygen Saturation 96% 06/14/2024 11:56 AM CDT Inhaled Oxygen Concentration - - Weight 104.3 kg (230 lb) 06/14/2024 11:56 AM CDT Height 165.1 cm (5' 5 ) 06/14/2024 11:56 AM CDT Body Mass Index 38.27 06/14/2024 11:56 AM CDT Plan of Treatment Health Maintenance Due Date Last Done Comments Breast Cancer Screening-Mammogram 1960 Cervical Cancer Screening 1960 Colon Cancer Screening-Colonoscopy 1960 Depression Screening 1960 Hepatitis C Screening 1960 DTaP/Tdap/Td Vaccine (1 - Tdap) 10/17/1971 Hepatitis B Screening 1978 Regular Well Visit/Exam 18-64 1978 Pneumococcal vaccine <65 (1 of 2 - PCV) 10/17/1979 Zoster Vaccine (1 of 2) 2010 Influenza Vaccine (Season Ended) 2024 12/31/2017, 02/02/2016, 02/26/2015 Medical Devices Implanted Type Area Resort Desk Clerk Device Identifier Shelf Expiration Date Model / Serial / Lot [employer] Cement Bone Simplex Gentamicin High Viscosity 40 6195-1-001 - [id number] Implanted:Qty: 1 on 02/25/2022 by Bradford Jenkins MD at [facility] [employer] [id number] 06/15/2023 6195-1-001 / / [id number] [employer] Cement Bone Simplex Gentamicin High Viscosity 40 6195-1-001 - [id number] Implanted:Qty: 1 on 02/25/[facility] 06/15/2023 6195-1-001 / / [id number] [employer] Attune Cemented Posterior Stabilize Knee Right 6 Component [id number] - [id number] Implanted:Qty: 1 on 02/25/2022 by Bradford Jenkins MD at [facility] [employer] [id number] 07/15/2031 [id number] / / [id number] [employer] Attune S+ Cement Fix Bearing Knee 5 Baseplate Tibial [id number] - [id number] Implanted:Qty: 1 on 02/25/2022 by Bradford Jenkins MD at [facility] [employer] [id number] 01/15/2032 [id number] / / [id number] [employer] Attune 8mm Posterior Stabilize Fix Bearing Knee 6 Insert Tibial [id number] - [id number] Implanted:Qty: 1 on 02/25/2022 by Bradford Jenkins MD at [facility] [employer] [id number] 12/14/2026 [id number] / / [id number] Procedures Procedure Name Priority Date/Time Associated Diagnosis Comments POCT LIPID PANEL Routine 06/14/2024 11:5 9 AM CDT Coronary artery disease of [place] artery of [place] heart with stable angina pectoris from Last 3 Months Results * POCT lipid panel (06/14/2024 11:59 AM CDT) Cholesterol, POC 102 mg/dL HDL, POC 53 mg/dL Triglycerides, POC 97 mg/dL LDL Cholesterol POC 30 mg/dL Chol/HDL Ratio, POC 0.6 Non-HDL Cholesterol, POC 49 mg/dL Cholesterol Total, POC 102 mg/dL Capillary blood 06/14/2024 1 1:59 AM CDT Prashant Robles MD POINT OF CARE TEST ORDERA BLES Final Result from Last 3 Months Insurance [facility] CHOICE PLUS Care Teams Android Architect Relationship Specialty Start Date End Date Keturah Culver DO PCP - General Family Medicine 01/23/20 Bradford Jenkins MD [address] [place] [address] [place] [address] Surgeon Orthopedic Surgery 02/25/22
--- OUTSIDE RECORDS SUMMARY | 2024-08-02 14:28 | XMS_ITS | Clinical Summary ---
Author Organization [facility] Address [address] [place] [address] Care Team Providers Care Mine Patrol Name Role Phone Unavailable Primary Care Provider Unavailabl e Source Comments [facility],non-owned Affiliates and Associated Physician Practices is amultiple site organization consisting of ambulatory clinics and hospital sitesin [place], [place]. This disclosure is being madepursuant to the Care Everywhere program and may not contain all information available regarding this patient. Last updated 17.[facility] Social History Tobacco Use Types Packs/Day Years Used Date Smoking Tobacco: Never Assessed Comments Unknown Sex and Gender Information Value Date Recorded Sex Assigned at Not on file Legal Sex Female 6:13 AM CAMPAIGN MANAGEMENT SPECIALIST Gender Identity Not on file Sexual Orientation Not on file Plan of Treatment Health Maintenance Due Date Last Done Comments COLOGUARD (AGES 45-75) - COL ON CA SCREENING 1960 COLON MONITORING 1960 COLONOSCOPY - COLON CA SCREENING 1960 CT COLONOGRAPHY - COLON CA SCREENING 1960 Colorectal Cancer Screening 1960 FIT - COLON CA SCREENING 1960 FLEX SIG - COLON CA SCREENING 1960 LIPID TESTING 1960 MAMMOGRAM 1960 HIV SCREENING 10/17/1975 HEPATITIS C SCREENING 10/12/1978 DTAP/TDAP/TD VACCINES (1 - Tdap) 10/17/1979 PNEUMOCOCCAL VACCINE 50+ (1 of 1 - PCV) 2010 ZOSTER VACCINE (1 of 2) 2010 COVID-19 VACCINE ( - 2023-2 5 season) 2023 DEPRESSION SCREENING 03/17/2024 INFLUENZA VACCINE (Season Ended) 2024 Respiratory Syncytial Virus (RSV) Vaccine Pt: or over 60 yrs (1 - 1-dose 75+ series) 10/17/2035 HEPATITIS B VACCINE Aged Out No longe r eligible based on patient's age to complete this topic HIB VACCINE Aged Out No longer eligi ble based on patient's age to complete this topic HPV VACCINE Aged Out No longer eligi ble based on patient's age to complete this topic MENINGOCOCCAL (Group B) VACC INE SHARED DECISION-MAKING Aged Out No longer eligibl e based on patient's age to complete this topic MENINGOCOCCAL GROUPS A/C/Y/W VACCINE Aged Out No longer eligible b ased on patient's age to complete this topic
== END 2024-08-02 14:24 | disposition home or self-care (01) ==
PROVIDERS: PCP Family Medicine; Visit Provider Nurse Practitioner Family
DX: R91.1 Solitary pulmonary nodule (principal)
CPT/HCPCS: 71250

== ENCOUNTER 2024-12-01 08:17 | Outpatient (CLI) | payer OTHER, SELFPAY ==
--- NOTE | ~2024-12-01 | MM_ITS ---
EXAMINATION: MM screening scarlet BI w vy HISTORY: Screening TECHNIQUE: Craniocaudal and mediolateral oblique 3-D tomosynthesis images were obtained and synthetic 2-D images were generated. CAD analysis was submitted and interpreted. COMPARISON: 08/27/2022 BREAST PARENCHYMAL COMPOSITION: The breasts are heterogeneously dense, which may obscure small masses. FINDINGS: There is no evidence of suspicious mass, calcification, or architectural distortion to suggest malignancy. There has been no suspicious interval change. IMPRESSION: 1. No mammographic evidence of malignancy. Recommend routine screening mammography in one year. BI-RADS Category 2: Benign finding(s) Reviewed, dictated and finalized at location Q. IMPRESSION: 1. No mammographic evidence of malignancy. Recommend routine screening mammogra phy in one year. BI-RADS Category 2: Benign finding(s)
--- OUTSIDE RECORDS SUMMARY | 2024-12-01 08:46 | XMS_ITS | Clinical Summary ---
Author Organization [facility] Address [address] [place] [address] Care Team Providers Care Back Filler Operator Name Role Phone Unavailable Primary Care Provider Unavailabl e Source Comments [facility] [employer],non-owned Affiliates and Associated Physician Practices is amultiple site organization consisting of ambulatory clinics and hospital sitesin [place], [place], [place] and [place]. This disclosure is being madepursuant to the Care Everywhere program and may not contain all information available regarding this patient. Last updated 17.[facility] [employer] Social History Tobacco Use Types Packs/Day Years Used Date Smoking Tobacco: Never Assessed Comments Unknown Sex and Gender Information Value Date Recorded Sex Assigned at Not on file Legal Sex Female 6:13 AM PUMP SERVICER Gender Identity Not on file Sexual Orientation [...] 2010 ZOSTER VACCINE (1 of 2) 2010 DEPRESSION SCREENING 03/17/2024 COVID-19 VACCINE (1 - 2023-2 5 season) 2024 INFLUENZA VACCINE (#1) 2024 Respiratory Syncytial Virus (RSV) Vaccine Pt: [...]
--- OUTSIDE RECORDS SUMMARY | 2024-12-01 08:46 | XMS_ITS | Encounter Summary ---
Author Organization [facility] Healthcare Address [address] [place] [address] Care Team Providers Care Sales Stock Associate Name Role Phone Keturah Culver DO Primary Care Provider [phone] Bradford Jenkins MD Unavailable [phone] Encounter Details Date Type Department Care Team (Late st Contact Info) Description 08/02/2024 Orders Only [facility] [place] Health Information Management [address] [place] [id number] Scanning, Provider Social History Tobacco Use Types Packs/Day Years Used Date Smoking Tobacco: Former Cigarettes Q uit: 2000 Smokeless Tobacco: Never Alcohol Use Standard Drinks/Week Comments Not Currently [...] on file Legal Sex Female 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 Gender Identity Not on file Sexual Orientation Not on file documented as of this encounter Plan of Treatment Not on file documented as of this encounter Procedures Procedure Name Priority Date/Time Associated Diagnosis Comments SCAN - RADIOLOGY/IMAGING 08/02/2024 documented in this encounter Results * SCAN - RADIOLOGY/IMAGING (08/02/2024) Anatomical Region Laterality Modality Other us Provider Scanning Final Result documented in this encounter Visit Diagnoses Not on filedocumented in this encounter Care Teams Sales Stock Associate Relationship Specialty Start Date End Date Keturah Culver DO PCP - General Family Medicine 01/23/20 Bradford Jenkins MD [address] [place] [address] DR LOTT [address] [place] [id number] Surgeon Orthopedic Surgery 02/25/22 documented as of this encounter
--- OUTSIDE RECORDS SUMMARY | 2024-12-01 08:46 | XMS_ITS | Clinical Summary ---
Author Organization [facility] [address] Address [address] [place] [address] Care Team Providers Care Bicycle Subassembler Name Role Phone DavidmarcKeturah hutchinson Primary Care Provider [phone] Bradford Jenkins MD Unavailable [phone] Allergies No known active allergies Medications cholecalciferol (VITAMIN D-3) 50,000 unit capsule cholecalciferol (vitamin D3) 1,250 mcg (50,000 unit) capsule TAKE 1 CAPSULE BY MOUTH ONCE A WEEK Active levothyroxine (SYNTHROID) 112 mcg tablet Take 1 tablet (112 mcg total) by mouth daily 05/30/19 22 Active apixaban (ELIQUIS) 5 mg tabletIndication s:atrial fibrillation Take 1 tablet (5 mg total) by mouth 2 (two) times a day 60 tablet 11 04/12/19 25 026 Active atorvastatin (LIPITOR) 20 mg tabletIndication s: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 Take 1 tablet (20 mg total) by mouth daily 30 tablet 11 04/12/19 25 026 Active metoprolol tartrate (LOPRESSOR) 50 mg immediate release tabletIndication s:Paroxysmal atrial fibrillation (HCC) TAKE 1 TABLET BY MOUTH TWICE A DAY 180 tablet 2 05/20/19 25 Active furosemide (LASIX) 20 mg tablet Take 1 tablet by mouth once daily 90 tablet 2 07/27/19 25 Active Active Problems Problem Noted Date Diagnosed Date Nodule of lower lobe of left lung 04/12/2024 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 04/12/2024 Localized edema 04/30/2023 Morbid (severe) obesity due to excess calories 0 04/30/2023 Medication side effects 12/26/2022 Pulmonary HTN 12/26/2022 Lipid screening 12/26/2022 Primary osteoarthritis of right knee 02/13/2022 Overview (02/13/2022): Added automatically from request for surgery [id number] Chronic fatigue 07/27/2020 Paroxysmal atrial fibrillation 07/27/2020 Palpitations 07/27/2020 History of 2019 novel coronavirus disease (COVID -19) 07/27/2020 Insomnia 07/27/2020 DAVID (obstructive sleep apnea) 07/27/2020 Obesity (BMI 35.0-39.9 without comorbidity) 07/15 Hypothyroidism (acquired) 07/27/2020 Surgical History Surgery Date Site/Laterality Comments SECTION [...] Average Number of Drinks Not on file Frequency of Binge Drinking Not on file 02/14 Comments Unknown Sex and Gender Information Value Date Recorded Sex Assigned at Not on file Legal Sex 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 Gender Identity Not on file Sexual Orientation Not on file Obstetrics History Last Filed Vital Signs Vital Sign Reading Time Taken Comments Blood Pressure 124/72 06/14/2024 11:56 AM CDT Pulse 51 06/14/2024 11:56 AM CDT Temperature 36.7 C (98 F) 02/25/2022 12:39 PM INSTITUTIONAL AIDE Respiratory Rate 18 02/25/2022 2:45 PM INSTITUTIONAL AIDE Oxygen Saturation 96% 06/14/2024 11:56 AM CDT Inhaled Oxygen Concentration - - Weight 104.3 kg (230 lb) 06/14/2024 11:56 AM CDT Height 165.1 cm (5' 5) 06/14/2024 11:56 AM CDT Body Mass Index [...] Vaccine (1 of 2) 2010 Influenza Vaccine (#1) 2024 8, 02/02/2016, 02/26/2015 Medical Devices Implanted Type Area Health Professor Device Identifier Shelf Expiration Date Model / Serial / Lot [employer] Cement Bone Simplex Gentamicin High Viscosity 40 6195-1-001 - [id number] Implanted:Qty: 1 on 02/25/2022 by Bradford Jenkins MD at [facility] [employer] [id number] 06/15/2023 6195-1-001 / / [id number] [employer] Cement Bone Simplex Gentamicin High Viscosity 40gm 6195-1-001 - [id number] Implanted:Qty: 1 on 02/25/2022 by Bradford Jenkins MD at [facility] [employer] [id number] 06/15/2023 6195-1-001 / / [id number] [employer] Attune Cemented Posterior Stabilize Knee Right 6 Component [id number] - [id number] Implanted:Qty: 1 on 02/25/2022 by Bradford Jenkins MD at [facility] [employer] [id number] 07/15/2031 [id number] / / [id number] [employer] Attune S+ Cement Fix Bearing Knee 5 Baseplate Tibial [id number] - [id number] Implanted:Qty: 1 on 02/25/2022 by Bradford Jenkins MD at [facility] [employer] [id number] 01/15/2032 [id number] / / [id number] [employer] Attune 8mm Posterior Stabilize Fix Bearing Knee 6 Insert Tibial [id number] - [id number] Implanted:Qty: 1 on 02/25/2022 by Bradford Jenkins MD at [facility] [employer] [id number] 12/14/2026 [id number] / / [id number] Insurance Care Teams Bicycle Subassembler Relationship Specialty Start Date End Date Keturah Culver DO PCP - General Family Medicine 01/23/20 Bradford Jenkins MD [address] [place] [address] [place] [address] Surgeon Orthopedic Surgery 02/25/22
== END 2024-12-01 08:18 | disposition home or self-care (01) ==
LOC: CHSIMG 08:18
PROVIDERS: PCP Family Medicine; Visit Provider Family Medicine
DX: Z12.31 Encounter for screening mammogram for malignant neoplasm of breast (principal)
CPT/HCPCS: 77063; 77067